=== PATIENT | female | born 1960 | race Caucasian/White ===

== ENCOUNTER → 2017-01-04 | Outpatient (CLI) | payer MEDICARE ==
--- NOTE | 2017-01-06 13:30 | MM ---
Reason for exam: screening (asymptomatic). Last mammogram was performed 1 year ago. History: Patient is postmenopausal. Family history of premenopausal breast cancer in paternal cousin. Benign US left CoreBiopsy of both breasts, September 15, 2007. Cancelled Right Mammotome of the right breast, September 15, 2007. Excisional biopsy of the right breast, 2007. Physical Findings: A clinical breast exam by your physician is recommended on an annual basis and results should be correlated with mammographic findings. MG Screening Mammo w CAD Bilateral CC and MLO view(s) were taken. Prior study comparison: January 05, 2016, bilateral MG screening mammo w CAD. January 03, 2015, bilateral MG screening mammo w CAD. The breast tissue is extremely dense which could obscure a lesion on mammography. Finding: There are stable, fine, diffuse/scattered calcifications in the left breast. There is a chronic nodularity in the right breast. No significant changes in finding since January 05, 2016 and January 03, 2015. ASSESSMENT: Benign, BI-RAD 2 RECOMMENDATION: Routine screening mammogram of both breasts in 1 year.
== END | disposition home or self-care (01) ==
LOC: RADMAMWWP 16:06
PROVIDERS: ATTEND Family Medicine
DX: Z12.31 Encounter for screening mammogram for malignant neoplasm of breast (principal)

== ENCOUNTER → 2018-06-08 | Outpatient (CLI) | payer MEDICARE ==
--- NOTE | 2018-06-08 18:23 | BD ---
EXAMINATION TYPE: Axial Bone Density DATE OF EXAM: 06/08/2018 COMPARISON: NONE CLINICAL HISTORY: 49-year-old female postmenopausal symptoms Height: 5 FT 4 1/2 IN Weight: 103 FRAX RISK QUESTIONS: Glucocorticoids (More than 3mos): YES (Ex: prednisone, prednisolone, methylprednisolone, dexamethasone, and hydrocortisone). Secondary Osteoporosis: Current Tobacco Use: YES RISK FACTORS HISTORY OF: Postmenopausal woman: AGE 45 Lost more than 2 inches in height since high school: YES Poor Health: FAIR MEDICATIONS: Prednisone or other steroids: COPD How Long: ONE YEAR How Long: Additional Medications: OXYCODONE, FLEXERIL, CLONOPIN, EFFEXOR Additional History: EXAM MEASUREMENTS: Bone mineral densitometry was performed using the [employer] System. Bone mineral density as measured about the Lumbar spine is: ----- L1-L4(G/cm2): 1.166 T Score Values are as follows: ----- L2: 0.3 ----- L3: -0.5 ----- L4: -0.2 ----- L1-L4: -0.1 Bone mineral density has: INCREASED 0.3 % since study of: 2014 Bone mineral density about the R hip (g/cm2): 0.985 Bone mineral density about the L hip (g/cm2): 0.978 T Score values are as follows: -----R Neck: -0.4 -----L Neck: -0.4 -----R Total: -1.0 -----L Total: -1.0 Bone mineral density has: INCREASED 1.5 % since study of: 2014 IMPRESSION: Normal (Values between +1 and -1 indicate normal bone mass). However, note that measurements border on osteopenia at both hips. Consider repeating this study in 5 years or sooner if there is some new clinical indication. NOTE: T-SCORE=SD OF THE YOUNG ADULT MEAN.
--- NOTE | 2018-06-09 13:20 | MM ---
Reason for exam: screening (asymptomatic). Last mammogram was performed 1 year and 5 months ago. History: Patient is postmenopausal. Family history of premenopausal breast cancer in paternal cousin. Benign US left CoreBiopsy of both breasts, September 15, 2007. Cancelled Right Mammotome of the right breast, September 15, 2007. Excisional biopsy of the right breast, 2007. Physical Findings: A clinical breast exam by your physician is recommended on an annual basis and results should be correlated with mammographic findings. MG 3D Screening Mammo W/Cad Bilateral CC, MLO, and XCCL view(s) were taken. Prior study comparison: January 04, 2017, bilateral MG screening mammo w CAD. January 05, 2016, bilateral MG screening mammo w CAD. The breast tissue is heterogeneously dense. This may lower the sensitivity of mammography. Stable benign calcifications. There is chronic nodularity bilaterally. There is no dominant lesion. No significant changes when compared with prior studies. ASSESSMENT: Benign, BI-RAD 2 RECOMMENDATION: Routine screening mammogram of both breasts in 1 year.
== END | disposition home or self-care (01) ==
LOC: RADMAMWWP 15:26
PROVIDERS: ATTEND Family Medicine
DX: Z12.31 Encounter for screening mammogram for malignant neoplasm of breast (principal); Z78.0 Asymptomatic menopausal state
CPT/HCPCS: 77063; 77067; 77080

== ENCOUNTER 2018-07-22 18:04 | Observation (INO) | payer MEDICARE ==
[2018-07-22] MEDS ORDERED: IPRATROPIUM-ALBUTEROL 3 ML NEB INHALATION STA (18:29)
[2018-07-22] MEDS ORDERED: methylPREDNISolone SOD SUCCI 125 MG/2 ML VIAL IV STA (18:29)
--- NOTE | 2018-07-22 18:51 | ED ---
General Adult HPI - General Source: patient, RN notes reviewed Mode of arrival: ambulatory Limitations: no limitations <Emile Carolina - Last Filed: 07/22/18 19:55> <Dawn Ruiz - Last Filed: 07/23/18 01:43> - General Chief complaint: Shortness of Breath Stated complaint: low O2, lizz Time Seen by Provider: 07/22/18 18:21 - History of Present Illness Initial comments: This a 57-year-old female presents emergency Department from urgent care chief complaint of shortness of breath. Patient states that she's been short of breath last few days felt that she does have an upper respiratory infection. Patient states yesterday she had an episode where she cannot get air in or out. She states she was given inhaler by a friend which alleviated some of the symptoms. Patient states she has been wheezing and coughing at home. Patient is a daily smoker history of COPD asthma. Patient states that she was seen at [facility] and sent here for further evaluation. She was given one breathing treatment of albuterol which minimally helped. Denies any chest pain. Patient denies any fever, chills, night sweats. Denies any chest pain but states that there is tightness. (Emile Carolina) - Related Data Home Medications Medication Instructions Recorded Confirmed clonazePAM [Clonazepam] 1 mg PO TID 03/03/15 07/22/18 oxyCODONE HCL/ACETAMINOPHEN 1 tab PO QID 03/03/15 07/22/18 [Oxycodone-Acetaminophen 5-325] [id number]-[id number] [id number] 1 - 2 tab PO Q6HR PRN 05/06/15 07/22/18 [Excedrin] Cyclobenzaprine [Flexeril] 10 mg PO TID 07/22/18 07/22/18 Venlafaxine HCl ER [Effexor XR] 75 mg PO DAILY 07/22/18 07/22/18 Allergies Allergy/AdvReac Type Severity Reaction Status Date / Time codeine Allergy Nausea & Verified 07/22/18 18:20 Vomiting gabapentin [From Neurontin] Allergy STUTTERS, Verified 07/22/18 18:20 SPEECH DIFFICULTY. hydrocodone bitartrate Allergy Nausea & Verified 07/22/18 18:20 [From Vicodin] Vomiting tramadol HCl [From Ultram] Allergy Nausea & Verified 07/22/18 18:20 Vomiting Review of Systems ROS Other: All systems not noted in ROS Statement are negative. <Emile Carolina - Last Filed: 07/22/18 19:55> ROS Other: All systems not noted in ROS Statement are negative. <JosephDawn P - Last Filed: 07/23/18 01:43> ROS Statement: Those systems with pertinent positive or pertinent negative responses have been documented in the HPI. Past Medical History Past Medical History: Asthma, COPD, Fibromyalgia, Osteoarthritis (OA), Seizure Disorder Additional Past Medical History / Comment(s): MIGRAINES, last seizure 2009 History of Any Multi-Drug Resistant Organisms: None Reported Past Surgical History: Tubal Ligation Additional Past Surgical History / Comment(s): Ectopic , D&C, PAIN CLINIC PROCEDURES- Past Anesthesia/Blood Transfusion Reactions: Postoperative Nausea & Vomiting ( PONV) Past Psychological History: Anxiety Smoking Status: Current every day smoker Past Alcohol Use History: Rare Past Drug Use History: Marijuana - Past Family History Brother(s) Family Medical History: Cancer Additional Family Medical History / Comment(s): Brother throat CA Mother Family Medical History: Cancer Additional Family Medical History / Comment(s): Uterine CA Father Family Medical History: Cancer Additional Family Medical History / Comment(s): MELANOMA <Emile Carolina - Last Filed: 07/22/18 19:55> General Exam Limitations: no limitations General appearance: alert, in no apparent distress Head exam: Present: atraumatic, normocephalic, normal inspection Eye exam: Present: normal appearance, PERRL, EOMI. Absent: scleral icterus, conjunctival injection, periorbital swelling ENT exam: Present: normal exam, normal oropharynx, mucous membranes moist Neck exam: Present: normal inspection, full ROM. Absent: tenderness, meningismus, lymphadenopathy Respiratory exam: Present: respiratory distress (Minimal), wheezes (Mild diffuse ), other (Pulse ox 93 hypoxia). Absent: normal lung sounds bilaterally, rales, rhonchi, stridor Cardiovascular Exam: Present: regular rate, normal rhythm, normal heart sounds. Absent: systolic murmur, diastolic murmur, rubs, gallop, clicks <Emile Carolina - Last Filed: 07/22/18 19:55> Course <Emile Carolina - Last Filed: 07/22/18 19:55> <Dawn Ruiz - Last Filed: 07/23/18 01:43> Vital Signs 07/22/18 07/22/18 07/22/18 18:15 19:01 19:16 Temperature 98.8 F Pulse Rate 77 74 74 Respiratory 18 Rate Blood Pressure 117/77 O2 Sat by Pulse 93 L Oximetry 07/22/18 07/22/18 19:30 20:00 Temperature Pulse Rate 70 70 Respiratory 22 18 Rate Blood Pressure 120/98 115/62 O2 Sat by Pulse 100 95 Oximetry - Reevaluation(s) Reevaluation #1: 07/22/18 18:50 Vitals were reviewed patient satting 93, hypoxic, placed on O2, (Emile Carolina) EKG Findings - EKG Comments: EKG Findings:: EKG performed at 18:57 normal sinus rhythm with rate of 77 ND 192 QRS 86 QT/QTC 366/414 <Emile Carolina - Last Filed: 07/22/18 19:55> Medical Decision Making - Lab Data Result diagrams: 07/22/18 18:37 07/22/18 18:37 <Emile Carolina - Last Filed: 07/22/18 19:55> - Lab Data Result diagrams: 07/22/18 18:37 07/22/18 18:37 <Dawn Ruiz - Last Filed: 07/23/18 01:43> - Medical Decision Making 57-year-old female presented for dyspnea. Patient had chest x-ray, lab work and EKG which unremarkable though patient continues to be dyspneic. Patient was hypoxic at urgent care improved after multiple breathing treatments. Patient will be admitted at this time for COPD exacerbation (Emile Carolina) I was available for consultation in the emergency department. The history and physical exam were done by the midlevel provider. I was consulted for this patient's care. I reviewed the case with the midlevel provider and based on their presentation of the patient, I agree with the assessment, medical decision making and plan of care as documented. (Dawn Ruiz) - Lab Data Lab Results 07/22/18 07/22/18 07/22/18 Range/Units 18:37 18:37 18:37 WBC 9.6 (3.8-10.6) k/uL RBC 4.47 (3.80-5.40) m/uL Hgb 14.5 (11.4-16.0) gm/dL Hct 44.0 (34.0-46.0) % MCV 98.5 (80.0-100.0) fL MCH 32.4 (25.0-35.0) pg MCHC 32.9 (31.0-37.0) g/dL RDW 12.9 (11.5-15.5) % Plt Count 262 (150-450) k/uL Neutrophils % 62 % Lymphocytes % 29 % Monocytes % 5 % Eosinophils % 2 % Basophils % 0 % Neutrophils # 5.9 (1.3-7.7) k/uL Lymphocytes # 2.8 (1.0-4.8) k/uL Monocytes # 0.4 (0-1.0) k/uL Eosinophils # 0.2 (0-0.7) k/uL Basophils # 0.0 (0-0.2) k/uL PT (9.0-12.0) sec INR (<1.2) APTT (22.0-30.0) sec Sodium 140 (137-145) mmol/L Potassium 4.3 (3.5-5.1) mmol/L Chloride 103 (98-107) mmol/L Carbon Dioxide 28 (22-30) mmol/L Anion Gap 9 mmol/L BUN 17 (7-17) mg/dL Creatinine 0.70 (0.52-1.04) mg/dL Est GFR (CKD-EPI)AfAm >90 (>60 ml/min/1.73 sqM) Est GFR (CKD-EPI)NonAf >90 (>60 ml/min/1.73 sqM) Glucose 88 (74-99) mg/dL Calcium 9.4 (8.4-10.2) mg/dL Magnesium 1.9 (1.6-2.3) mg/dL Total Bilirubin 0.3 (0.2-1.3) mg/dL AST 28 (14-36) U/L ALT 23 (9-52) U/L Alkaline Phosphatase 64 (38-126) U/L Total Creatine Kinase 91 (30-135) U/L CK-MB (CK-2) 0.4 (0.0-2.4) ng/mL CK-MB (CK-2) Rel Index 0.4 Troponin I <0.012 (0.000-0.034) ng/mL NT-Pro-B Natriuret Pep pg/mL Total Protein 7.0 (6.3-8.2) g/dL Albumin 4.2 (3.5-5.0) g/dL 07/22/18 07/22/18 Range/Units 18:37 18:37 WBC (3.8-10.6) k/uL RBC (3.80-5.40) m/uL Hgb (11.4-16.0) gm/dL Hct (34.0-46.0) % MCV (80.0-100.0) fL MCH (25.0-35.0) pg MCHC (31.0-37.0) g/dL RDW (11.5-15.5) % Plt Count (150-450) k/uL Neutrophils % % Lymphocytes % % Monocytes % % Eosinophils % % Basophils % % Neutrophils # (1.3-7.7) k/uL Lymphocytes # (1.0-4.8) k/uL Monocytes # (0-1.0) k/uL Eosinophils # (0-0.7) k/uL Basophils # (0-0.2) k/uL PT 9.4 (9.0-12.0) sec INR 0.9 (<1.2) APTT 22.2 (22.0-30.0) sec Sodium (137-145) mmol/L Potassium (3.5-5.1) mmol/L Chloride (98-107) mmol/L Carbon Dioxide (22-30) mmol/L Anion Gap mmol/L BUN (7-17) mg/dL Creatinine (0.52-1.04) mg/dL Est GFR (CKD-EPI)AfAm (>60 ml/min/1.73 sqM) Est GFR (CKD-EPI)NonAf (>60 ml/min/1.73 sqM) Glucose (74-99) mg/dL Calcium (8.4-10.2) mg/dL Magnesium (1.6-2.3) mg/dL Total Bilirubin (0.2-1.3) mg/dL AST (14-36) U/L ALT (9-52) U/L Alkaline Phosphatase (38-126) U/L Total Creatine Kinase (30-135) U/L CK-MB (CK-2) (0.0-2.4) ng/mL CK-MB (CK-2) Rel Index Troponin I (0.000-0.034) ng/mL NT-Pro-B Natriuret Pep 182 pg/mL Total Protein (6.3-8.2) g/dL Albumin (3.5-5.0) g/dL Disposition Time of Disposition: 19:56 <Emile Carolina - Last Filed: 07/22/18 19:55> <Dawn Ruiz - Last Filed: 07/23/18 01:43> Clinical Impression: COPD with exacerbation Disposition: ADMITTED IP TO THIS HOSP Condition: Fair
[2018-07-22 19:01] LABS: Basophils % (A) 0 %; Eosinophils # (A) 0.2 k/uL (0-0.7); Eosinophils % (A) 2 %; HGB 14.5 gm/dL (11.4-16.0); Lymphocytes # (A) 2.8 k/uL (1.0-4.8); Lymphocytes % (A) 29 %; MCH 32.4 pg (25.0-35.0); MCHC 32.9 g/dL (31.0-37.0); MCV 98.5 fL (80.0-100.0); Mean Platelet Volume 7.1; Monocytes # (A) 0.4 k/uL (0-1.0); Monocytes % (A) 5 %; Neutrophils # (A) 5.9 k/uL (1.3-7.7); Neutrophils % (A) 62 %; Platelet Count 262 k/uL (150-450); RBC 4.47 m/uL (3.80-5.40); RDW 12.9 % (11.5-15.5); WBC 9.6 k/uL (3.8-10.6)
[2018-07-22 19:11] LABS: INR 0.9 (<1.2); Partial Thromboplastin Time 22.2 sec (22.0-30.0); Prothrombin Time 9.4 sec (9.0-12.0)
[2018-07-22 19:18] LABS: ALT 23 U/L (9-52); AST 28 U/L (14-36); Albumin 4.2 g/dL (3.5-5.0); Alkaline Phosphatase 64 U/L (38-126); Anion Gap 9 mmol/L; Blood Urea Nitrogen 17 mg/dL (7-17); Calcium 9.4 mg/dL (8.4-10.2); Carbon Dioxide 28 mmol/L (22-30); Chloride 103 mmol/L (98-107); Glucose 88 mg/dL (74-99); Magnesium 1.9 mg/dL (1.6-2.3); Potassium 4.3 mmol/L (3.5-5.1); Sodium 140 mmol/L (137-145); Total Bilirubin 0.3 mg/dL (0.2-1.3)
[2018-07-22 19:21] LABS: Creatine Kinase 91 U/L (30-135)
--- NOTE | 2018-07-22 19:25 | XR ---
EXAMINATION TYPE: XR chest 2V DATE OF EXAM: 07/22/2018 COMPARISON: NONE HISTORY: History of asthma and COPD, dyspnea TECHNIQUE: Frontal and lateral views of the chest are obtained. FINDINGS: Lungs are hyperinflated and hyperlucent with flattening of the diaphragms. There is no foc al air space opacity, pleural effusion, or pneumothorax seen. The cardiac silhouette size is within normal limits. The osseous structures are intact. IMPRESSION: 1. No acute cardiopulmonary process. 2. Emphysematous changes.
[2018-07-22] MEDS ORDERED: LORazepam 2 MG/ML INJ IV STA (19:32)
[2018-07-22 19:35] LABS: Creatine Kinase MB 0.4 ng/mL (0.0-2.4); Troponin I <0.012 ng/mL (0.000-0.034)
[2018-07-22] MEDS ORDERED: ALBUTEROL NEBULIZED 2.5 MG/3 ML INHALATION PRN (19:57)
[2018-07-22 21:30] VITALS: BMI 16.9
[2018-07-22] MEDS ORDERED: PANTOPRAZOLE 40 MG/10 ML VIAL IVP ONE (22:36)
[2018-07-22] MEDS: clonazePAM 0.5 MG TAB PO SCH (23:09)
[2018-07-22] MEDS: CYCLOBENZAPRINE 10 MG TAB PO SCH (23:09)
[2018-07-22] MEDS: methylPREDNISolone SOD SUCCI 125 MG/2 ML VIAL IV SCH (23:12)
[2018-07-22] MEDS: HEPARIN SODIUM,PORCINE 5,000 UNIT/ML 1 ML VIAL SQ SCH (23:14)
[2018-07-23] MEDS: methylPREDNISolone SOD SUCCI 125 MG/2 ML VIAL IV SCH ×2 (06:17→11:48)
[2018-07-23] MEDS: clonazePAM 0.5 MG TAB PO SCH (08:11)
[2018-07-23] MEDS: HEPARIN SODIUM,PORCINE 5,000 UNIT/ML 1 ML VIAL SQ SCH (08:12)
[2018-07-23] MEDS: CYCLOBENZAPRINE 10 MG TAB PO SCH (08:14)
[2018-07-23] MEDS: IPRATROPIUM-ALBUTEROL 3 ML NEB INHALATION SCH ×3 (08:31→15:08)
[2018-07-23] MEDS ORDERED: NICOTINE 21MG/24HR PATCH TRANSDERM SCH (09:00)
[2018-07-23] MEDS ORDERED: PANTOPRAZOLE 40 MG/10 ML VIAL IVP SCH (09:00)
[2018-07-23] MEDS ORDERED: VENLAFAXINE HCL ER 150 MG CAP PO SCH (10:30)
[2018-07-23 12:38] VITALS: BP 108/66; RESP 18; TEMP 98.6
[2018-07-23] MEDS: oxyCODONE-APAP 5-325MG 1 EACH TAB PO PRN ×2 (13:12→13:15)
--- NOTE | 2018-07-23 14:21 | P.HPIM ---
History of Present Illness This is a pleasant 57 years old female with past medical history of asthma/COPD , fibromyalgia, history of arthritis, seizure disorder. She is a patient of Dr. Benjamin. She presents because of dyspnea associated with dry cough of one to two days duration, but no chest pain. Patient is a current smoker about one pack per day since age 10. Patient denies any change in urine or bowel habits. No fever. Heart rate controlled. Blood pressure is stable at 108/66. And she is saturating 96% on room air. CBC, BMP and LFTs were unremarkable. Chest x-ray shows emphysematous changes without acute cardiopulmonary changes as per report. EKG showing normal sinus rhythm at 77 BPM, QTC 414, no significant ST- T changes. On admission patient received a breathing treatment, started on Solu -Medrol and 1 time dose of Ativan as well as Protonix. Patient showed interval improvement and she said she feels better. When I came to see the patient she was sitting in bed, comfortable nontender distress. She was not tachypnea she was breathing at a rate of 16 breath per minute. No use of accessory muscles no difficulty talking. No cough was noticed. Saturation as above within yamilet On room air. And patient feels she can be discharged home and follow-up as an outpatient. Prescription is provided for the patient for her steroids and antibiotics. As well as nicotine patch. Patient is counseled extensively about quitting smoking and she said she will try. Patient has history of depression, and she is follow-up with Dr. Benjamin who recently stopped her Effexor. Patient she has been struggling to find a psychiatrist for a year. However she was smiling at 1 month talking. She denies epistaxis and hopelessness and she denies suicidal and homicidal ideation. Patient was instructed to follow up with her PCP this coming wee to adress all her health and she agrees Patient states she has history of seizure but she was never been on seizure medication, and she's been taking Klonopin for anxiety and other morbid issues and that her doctor is planning to take her orbit in the near future as per patient Review of Systems CONSTITUTIONAL: No fever, no malaise, no fatigue. HEENT: No recent visual problems or hearing problems. Denied any sore throat. CARDIOVASCULAR: No orthopnea, PND, no palpitations, no syncope. PULMONARY: No shortness of breath, no cough, no hemoptysis. GASTROINTESTINAL: No diarrhea, no nausea, no vomiting, no abdominal pain. Normoactive bowel sounds. NEUROLOGICAL: No headaches, no weakness, no numbness. HEMATOLOGICAL: Denies any bleeding or petechiae. GENITOURINARY: Denies any burning micturition, frequency, or urgency. MUSCULOSKELETAL/RHEUMATOLOGICAL: Denies any joint pain, swelling, or any muscle pain. ENDOCRINE: Denies any polyuria or polydipsia. Past Medical History Past Medical History: Asthma, COPD, Fibromyalgia, Osteoarthritis (OA), Seizure Disorder Additional Past Medical History / Comment(s): MIGRAINES, last seizure 2008. DDD History of Any Multi-Drug Resistant Organisms: None Reported Past Surgical History: Tubal Ligation Additional Past Surgical History / Comment(s): Ectopic , D&C, PAIN CLINIC PROCEDURES- Past Anesthesia/Blood Transfusion Reactions: Postoperative Nausea & Vomiting ( PONV) Past Psychological History: Anxiety, Depression Smoking Status: Current every day smoker Past Alcohol Use History: Rare Additional Past Alcohol Use History / Comment(s): SMOKES CIGARETTES 1PPD - STARTED SMOKING AT 10 YRS OLD(1970) Past Drug Use History: Marijuana Additional Drug Use History / Comment(s): Medical Marijuana -STATES MARIJUANA DAILY - Past Family History Brother(s) Family Medical History: Cancer Additional Family Medical History / Comment(s): Brother throat CA Mother Family Medical History: Cancer Additional Family Medical History / Comment(s): Uterine CA Father Family Medical History: Cancer Additional Family Medical History / Comment(s): MELANOMA Medications and Allergies Home Medications Medication Instructions Recorded Confirmed Type oxyCODONE HCL/ACETAMINOPHEN 1 tab PO QID 03/03/15 07/23/18 History [Oxycodone-Acetaminophen 5-325] Xplssai-Raol-Frgb [id number] 1 - 2 tab PO Q6HR PRN 05/06/15 07/23/18 History [Excedrin] Cyclobenzaprine [Flexeril] 10 mg PO TID 07/22/18 07/23/18 History Venlafaxine HCl [Effexor XR] 150 mg PO DAILY 07/23/18 07/23/18 History clonazePAM [KlonoPIN] 1 mg PO TID 07/23/18 07/23/18 History Allergies Allergy/AdvReac Type Severity Reaction Status Date / Time codeine Allergy Nausea & Verified 07/23/18 08:23 Vomiting gabapentin [From Neurontin] Allergy STUTTERS, Verified 07/23/18 08:23 SPEECH DIFFICULTY. hydrocodone bitartrate Allergy Nausea & Verified 07/23/18 08:23 [From Vicodin] Vomiting tramadol HCl [From Ultram] Allergy Nausea & Verified 07/23/18 08:23 Vomiting Physical Exam Vitals: Vital Signs Temp Pulse Pulse Pulse Resp BP BP 07/23/18 12:35 98.6 F 96 18 108/66 07/23/18 12:25 77 07/23/18 12:13 76 07/23/18 08:42 74 07/23/18 08:32 72 07/23/18 08:00 98.0 F 79 16 119/61 07/22/18 23:17 98.4 F 76 19 97/65 07/22/18 21:01 98.2 F 90 20 99/64 07/22/18 20:00 70 18 115/62 07/22/18 19:30 70 22 120/98 07/22/18 19:16 74 07/22/18 19:01 74 07/22/18 18:15 98.8 F 77 18 117/77 Pulse Ox 07/23/18 12:35 96 07/23/18 12:25 07/23/18 12:13 07/23/18 08:42 07/23/18 08:32 07/23/18 08:00 95 07/22/18 23:17 95 07/22/18 21:01 96 07/22/18 20:00 95 07/22/18 19:30 100 07/22/18 19:16 07/22/18 19:01 07/22/18 18:15 93 L Intake and Output 07/22/18 07/23/18 07/23/18 22:59 06:59 14:59 Intake Total 500 375 Balance 500 375 Intake: Oral 500 375 Other: Voiding Method Toilet Toilet # Voids 3 Weight 47.7 kg GENERAL: The patient is alert and oriented x3, not in any acute distress. Well developed, well nourished. HEENT: Pupils are round and equally reacting to light. EOMI. No scleral icterus. No conjunctival pallor. Normocephalic, atraumatic. No pharyngeal erythema. No thyromegaly. CARDIOVASCULAR: S1 and S2 present. No murmurs, rubs, or gallops. PULMONARY: Chest is clear to auscultation, no crackles. Bilateral scattered wheezing and prolonged expiration. ABDOMEN: Soft, nontender, nondistended, normoactive bowel sounds. No palpable organomegaly. MUSCULOSKELETAL: No joint swelling or deformity. EXTREMITIES: No cyanosis, clubbing, or pedal edema. NEUROLOGICAL: Gross neurological examination did not reveal any focal deficits. SKIN: No rashes. Results CBC & Chem 7: 07/22/18 18:37 07/22/18 18:37 Thrombosis Risk Factor Assmnt - Choose All That Apply Each Factor Represents 1 point: Abnormal pulmonary function (COPD), Age 41-60 years Thrombosis Risk Factor Assessment Total Risk Factor Score: 2 Thrombosis Risk Factor Assessment Level: Low Risk Assessment and Plan Assessment: Acute COPD exacerbation History of fibromyalgia history of arthritis History of seizure disorder Plan: This is a pleasant 57 years old female who presents with COPD exacerbation. Continue with steroids, oxygen and breathing treatment. Labs and medication were reviewed.. However patient breathing is so quiet, she doesn't complain of from dyspnea and coughing well he was seen her and she was not using accessory muscles she was talking comfortably and easily. No other concerning symptoms. a stable as above and as well as labs. He is herself feels better. Bedside echo the patient can go home and follow-up as an outpatient. Problems and management plan was discussed with the patient and she verbalized understanding and acceptance. bedside Patient is found stable and can be discharged home however she needs follow-up as outpatient. She'll probably she will call and make an appointment with her PCP this coming week. Prescription for tip of steroids, and doxycycline and nicotine patches provided for the patient. She did not want any more Scripts within her home meds
[2018-07-23] MEDS ORDERED: DOXYCYCLINE 100 MG CAP PO STA (14:36)
[2018-07-23 15:23] VITALS: PULSE 79
--- NOTE | 2018-07-26 09:25 | P.DS ---
Providers Date of admission: 07/22/18 19:57 Attending physician: Óscar Martin Primary care physician: Michael Benjamin Please refer to my H&P from today, same day note Hospital Course: please refer to my H&P for more details pt returned to her baseline breathing. she was smiling and showing has future plan and showed interest with follow up with her physician as outpt , pt is been discharged with tapered dose of steroid and antibiotic. Pt was instructed about the problems and management plan and Pt verbalized understanding and acceptance Pt is found stable and can be discharged to the community but needs follow up as outpt Patient Condition at Discharge: Fair Plan - Discharge Summary Discharge Rx Participant: No New Discharge Prescriptions: New RX: Nicotine 21Mg/24Hr Patch [Habitrol] 1 patch TRANSDERM DAILY #30 patch RX: predniSONE 10 mg PO DIRECTED #13 tab RX: Doxycycline [Vibramycin] 100 mg PO BID 3 Days #6 capsule Continue RX: oxyCODONE HCL/ACETAMINOPHEN [Oxycodone-Acetaminophen 5-325] 1 tab PO QID RX: Eoacvni-Hkpu-Xypm [id number] [Excedrin] 1 - 2 tab PO Q6HR PRN PRN Reason: Migraine Headache RX: Cyclobenzaprine [Flexeril] 10 mg PO TID RX: clonazePAM [KlonoPIN] 1 mg PO TID RX: Venlafaxine HCl [Effexor XR] 150 mg PO DAILY Discharge Medication List RX: oxyCODONE HCL/ACETAMINOPHEN [Oxycodone-Acetaminophen 5-325] 1 tab PO QID [History] RX: [id number]-Jfnm-Klrz [id number] [Excedrin] 1 - 2 tab PO Q6HR PRN 05/06/15 [ History] RX: Cyclobenzaprine [Flexeril] 10 mg PO TID 07/22/18 [History] RX: Doxycycline [Vibramycin] 100 mg PO BID 3 Days #6 capsule 07/23/18 [Rx] RX: Nicotine 21Mg/24Hr Patch [Habitrol] 1 patch TRANSDERM DAILY #30 patch [Rx] RX: Venlafaxine HCl [Effexor XR] 150 mg PO DAILY 07/23/18 [History] RX: clonazePAM [KlonoPIN] 1 mg PO TID 07/23/18 [History] RX: predniSONE 10 mg PO DIRECTED #13 tab 07/23/18 [Rx] Follow up Appointment(s)/Referral(s): Michael Benjamin MD [Primary Care Provider] - 1-2 days Patient Instructions/Handouts: COPD (Chronic Obstructive Pulmonary Disease) (DC ), Chronic Lung Disease and Infection Prevention (DC), Nutrition Guidelines for People with COPD (DC) Activity/Diet/Wound Care/Special Instructions: Cardiac diet Activity is limited til you see your doctor. Call Dr Benjamin on Tuesday to make a follow up appointment for this week. Stop smoking program encouraged. Good handwashing. Discharge Disposition: HOME SELF-CARE
== END 2018-07-23 15:25 | disposition home or self-care (01) ==
LOC: EC 18:04 → 6PED 19:57
PROVIDERS: ADMIT Family Medicine; ATTEND Family Medicine
DX: J44.1 Chronic obstructive pulmonary disease with (acute) exacerbation (principal); M79.7 Fibromyalgia; M19.90 Unspecified osteoarthritis, unspecified site; G43.909 Migraine, unspecified, not intractable, without status migrainosus; G40.909 Epilepsy, unspecified, not intractable, without status epilepticus; F17.210 Nicotine dependence, cigarettes, uncomplicated; F41.9 Anxiety disorder, unspecified; F32.9 Major depressive disorder, single episode, unspecified; Z80.8 Family history of malignant neoplasm of other organs or systems; Z80.49 Family history of malignant neoplasm of other genital organs; Z79.899 Other long term (current) drug therapy; Z79.891 Long term (current) use of opiate analgesic; Z88.5 Allergy status to narcotic agent; Z88.8 Allergy status to other drugs, medicaments and biological substances; R09.02 Hypoxemia
CPT/HCPCS: 99285; 96372 ×2; 96375 ×2; 96376 ×2; 96374; 36415; 94640 ×3; 93005; 83880; 80053; 82550; 82553; 83735; 84484; 85025; 85610; 85730; 71046; G0378 ×2; S4990; J2060; J1644 ×2; J2930 ×2; C9113 ×2

== ENCOUNTER → 2019-01-15 | Outpatient (CLI) | payer MEDICARE ==
[2019-01-15 17:17] LABS: Vitamin D 25 Hydroxy 46.8 ng/mL (30.0-100.0)
== END | disposition home or self-care (01) ==
LOC: LABWHC1 10:34
PROVIDERS: ATTEND Psychiatry & Neurology Neurology
DX: R41.3 Other amnesia (principal)
CPT/HCPCS: 36415; 82306; 82550; 82607; 85652; 86038

== ENCOUNTER → 2019-03-01 | Outpatient (CLI) | payer MEDICARE ==
--- NOTE | 2019-03-01 13:43 | CT ---
EXAMINATION TYPE: CT brain wo con DATE OF EXAM: 03/01/2019 COMPARISON: 12/19/2011 HISTORY: Memory loss CT DLP: 823.3 mGycm Automated exposure control for dose reduction was used. FINDINGS: There is mild generalized degenerative change with a slightly greater frontal lobe component which is similar to the prior exam. Areas of low-attenuation the white matter are nonspecific but most typica l remote microvascular ischemia. No evidence of acute hemorrhage. No mass effect. Calvarium intact. Nasal septal deviation noted. IMPRESSION: STABLE MILD GENERALIZED DEGENERATIVE CHANGE WITH A GREATER FRONTAL LOBE COMPONENT. THERE MAY BE VERY MILD LOW-ATTENUATION IN THE WHITE MATTER MOST COMMONLY ASSOCIATED WITH REMOTE MICROVASCULAR ISCHEMIA.
== END | disposition home or self-care (01) ==
LOC: RADCTMAIN 13:04
PROVIDERS: ATTEND Psychiatry & Neurology Neurology
DX: G31.9 Degenerative disease of nervous system, unspecified (principal)
CPT/HCPCS: 70450

== ENCOUNTER → 2019-11-19 | Outpatient (CLI) | payer MEDICARE | END | disposition home or self-care (01) | LOC: RADMAMWWP 15:09 | PROVIDERS: ATTEND Family Medicine | DX: Z12.31 Encounter for screening mammogram for malignant neoplasm of breast (principal) | CPT/HCPCS: 77067 ==

== ENCOUNTER → 2019-11-27 | Outpatient (CLI) | payer MEDICARE ==
--- NOTE | 2019-11-28 08:26 | MM ---
Reason for exam: additional evaluation requested from abnormal screening. Last mammogram was performed less than 1 month ago. History: Patient is postmenopausal. Family history of premenopausal breast cancer in paternal cousin. Benign US left CoreBiopsy of both breasts, September 15, 2007. Cancelled Right Mammotome of the right breast, September 15, 2007. Excisional biopsy of the right breast, 2007. Physical Findings: Nurse did not find any significant physical abnormalities on exam. MG 3D Work Up W/Cad LT Spot compression CC, spot compression MLO, and ML view(s) were taken of the left breast. Prior study comparison: November 19, 2019, bilateral MG screening mammo w CAD. June 08, 2018, bilateral MG 3d screening mammo w/cad. The breast tissue is heterogeneously dense. This may lower the sensitivity of mammography. 7mm round medial subareolar asymmetry persists on spot CC but not on MLO or spot MLO. This appears stable back to 2017 and as dense tissue on ultrasound. These results were verbally communicated with the patient and result sheet given to the patient on 11/27/19. ASSESSMENT: Benign, BI-RAD 2 RECOMMENDATION: Return to routine screening mammogram schedule for both breasts.
--- NOTE | 2019-11-28 08:27 | USB ---
Reason for exam: additional evaluation requested from abnormal screening. History: Patient is postmenopausal. Family history of premenopausal breast cancer in paternal cousin. Benign US left CoreBiopsy of both breasts, September 15, 2007. Cancelled Right Mammotome of the right breast, September 15, 2007. Excisional biopsy of the right breast, 2007. US Breast Workup Limited LT Left limited breast ultrasound including focal area of concern, retroareolar and axilla demonstrates no cystic or solid lesion seen. These results were verbally communicated with the patient and result sheet given to the patient on 11/27/19. ASSESSMENT: Negative, BI-RAD 1 RECOMMENDATION: Return to routine screening mammogram schedule for both breasts.
== END | disposition home or self-care (01) ==
LOC: RADMAMWWP 15:13
PROVIDERS: ATTEND Family Medicine
DX: R92.8 Other abnormal and inconclusive findings on diagnostic imaging of breast (principal)
CPT/HCPCS: 77065; 76642; G0279; 77061

== ENCOUNTER 2020-07-18 13:30 | Inpatient (IN) | payer MEDICARE ==
[2020-07-18] MEDS ORDERED: LORazepam 2 MG/ML INJ IM STA (14:07)
[2020-07-18] MEDS ORDERED: diphenhydrAMINE 50 MG/ML 1 ML VIAL IM STA (14:07)
--- NOTE | 2020-07-18 14:23 | ED ---
Psych HPI - General Chief Complaint: Psychiatric Symptoms Stated Complaint: Mental Health Time Seen by Provider: 07/18/20 13:51 Source: patient, EMS, RN notes reviewed, old records reviewed Mode of arrival: EMS - History of Present Illness Initial Comments: this is a 5-year-old female DF for evaluation patient refuses to participating history taking secondary to agitation and being in the hospital, EMS and PD were called on patient the house to bring the ER patient is brought in under petition for psychiatric evaluation MD Complaint: suicidal ideation, feels depressed, other (anger) -: unknown Associated Psychiatric Symptoms: depression, suicidal ideation Quality: constant Improves With: none Worsens With: none Context: significant life stressor Associated Symptoms: denies other symptoms Treatments Prior to Arrival: placed on mental health hold If Self Harm: admits thoughts of self harm - Related Data Home Medications Medication Instructions Recorded Confirmed clonazePAM [KlonoPIN] 1 mg PO TID 07/23/18 07/18/20 Melatonin 10 mg PO HS 07/18/20 07/18/20 Mirtazapine 15 mg PO HS 07/18/20 07/18/20 Sertraline [Zoloft] 50 mg PO DAILY 07/18/20 07/18/20 methocarbamoL [Robaxin] 500 mg PO TID PRN 07/18/20 07/18/20 oxyCODONE-APAP 10-325MG [Percocet 1 tab PO TID PRN 07/18/20 07/18/20 10-325 mg] Allergies Allergy/AdvReac Type Severity Reaction Status Date / Time codeine Allergy Nausea & Verified 07/18/20 18:00 Vomiting gabapentin [From Neurontin] Allergy STUTTERS, Verified 07/18/20 18:00 SPEECH DIFFICULTY. hydrocodone bitartrate Allergy Nausea & Verified 07/18/20 18:00 [From Vicodin] Vomiting tramadol HCl [From Ultram] Allergy Nausea & Verified 07/18/20 18:00 Vomiting Review of Systems ROS Statement: Those systems with pertinent positive or pertinent negative responses have been documented in the HPI. ROS Other: All systems not noted in ROS Statement are negative. Past Medical History Past Medical History: Asthma, COPD, Fibromyalgia, Osteoarthritis (OA), Seizure Disorder Additional Past Medical History / Comment(s): MIGRAINES, last seizure 2008. DDD History of Any Multi-Drug Resistant Organisms: None Reported Past Surgical History: Tubal Ligation Additional Past Surgical History / Comment(s): Ectopic , D&C, PAIN CLINIC PROCEDURES- Past Anesthesia/Blood Transfusion Reactions: Postoperative Nausea & Vomiting (PONV) Past Psychological History: Anxiety, Depression Past Alcohol Use History: Rare Past Drug Use History: Marijuana - Past Family History Brother(s) Family Medical History: Cancer Additional Family Medical History / Comment(s): Brother throat CA Mother Family Medical History: Cancer Additional Family Medical History / Comment(s): Uterine CA Father Family Medical History: Cancer Additional Family Medical History / Comment(s): MELANOMA General Exam Limitations: no limitations General appearance: alert, in no apparent distress Head exam: Present: atraumatic, normocephalic, normal inspection Eye exam: Present: normal appearance, PERRL, EOMI. Absent: scleral icterus, conjunctival injection, periorbital swelling ENT exam: Present: normal exam, mucous membranes moist Neck exam: Present: normal inspection. Absent: tenderness, meningismus, lymphadenopathy Respiratory exam: Present: normal lung sounds bilaterally. Absent: respiratory distress, wheezes, rales, rhonchi, stridor Cardiovascular Exam: Present: regular rate, normal rhythm, normal heart sounds. Absent: systolic murmur, diastolic murmur, rubs, gallop, clicks GI/Abdominal exam: Present: soft, normal bowel sounds. Absent: distended, tenderness, guarding, rebound, rigid Extremities exam: Present: normal inspection, full ROM, normal capillary refill. Absent: tenderness, pedal edema, joint swelling, calf tenderness Back exam: Present: normal inspection Neurological exam: Present: alert, oriented X3, CN II-XII intact Psychiatric exam: Present: normal affect, normal mood Skin exam: Present: warm, dry, intact, normal color. Absent: rash Course Vital Signs 07/18/20 07/18/20 13:51 14:52 Temperature 99.5 F Pulse Rate 98 Respiratory 20 Rate Blood Pressure 136/80 O2 Sat by Pulse 99 Oximetry - Reevaluation(s) Reevaluation #1: 07/18/20 16:16 medical record is reviewed Reevaluation #2: 07/18/20 16:16 medical clear for psychiatric evaluation Reevaluation #3: 07/18/20 18:57 patient seen in however psychiatry here in the ER Medical Decision Making - Medical Decision Making 59 female seen and evaluated psychiatry [place] for psychiatric evaluation and treatment to psychiatric unit Disposition Clinical Impression: Depression, Acute anxiety, Suicidal ideation Disposition: TRANSFER TO PSYCH HOSP/UNIT Condition: Fair Is patient prescribed a controlled substance at d/c from ED?: No Referrals: Ousmane Lock Jr, [Primary Care Provider] - 1-2 days
[2020-07-18] MEDS ORDERED: LORazepam 1 MG TAB PO STA (19:59)
[2020-07-18] MEDS ORDERED: oxyCODONE-APAP 10-325MG 1 EACH TAB PO STA (20:31)
[2020-07-18] MEDS ORDERED: ACETAMINOPHEN TAB 325 MG TAB PO PRN (21:34)
[2020-07-18] MEDS ORDERED: MAGNESIUM HYDROXIDE 2,400 MG/10 ML CUP PO PRN (21:34)
[2020-07-18] MEDS ORDERED: ZIPRASIDONE 20 MG VIAL IM PRN (21:34)
[2020-07-18] MEDS ORDERED: MAG HYDROX/AL HYDROX/SIMETH 30 ML CUP PO PRN (21:34)
[2020-07-18] MEDS ORDERED: clonazePAM 1 MG TAB PO PRN (21:40)
[2020-07-18] MEDS ORDERED: oxyCODONE-APAP 5-325MG 1 EACH TAB PO PRN (21:44)
[2020-07-18] MEDS ORDERED: MIRTAZAPINE 15 MG TAB PO SCH (22:00)
[2020-07-18] MEDS: MELATONIN 5 MG TABLET PO SCH (22:47)
[2020-07-19] MEDS: NICOTINE 21MG/24HR PATCH TRANSDERM SCH (08:40)
[2020-07-19] MEDS ORDERED: SERTRALINE 50 MG TAB PO SCH (09:00)
[2020-07-19 09:20] LABS: Basophils # (A) 0.1 k/uL (0-0.2); Basophils % (A) 1 %; Eosinophils # (A) 0.2 k/uL (0-0.7); Eosinophils % (A) 2 %; HCT 47.4 % (34.0-46.0); HGB 15.7 gm/dL (11.4-16.0); Lymphocytes # (A) 4.4 k/uL (1.0-4.8); Lymphocytes % (A) 40 %; MCH 33.6 pg (25.0-35.0); MCHC 33.2 g/dL (31.0-37.0); MCV 101.3 fL (80.0-100.0); Mean Platelet Volume 7.8; Monocytes # (A) 0.5 k/uL (0-1.0); Monocytes % (A) 5 %; Neutrophils # (A) 5.5 k/uL (1.3-7.7); Neutrophils % (A) 50 %; Platelet Count 270 k/uL (150-450); RBC 4.67 m/uL (3.80-5.40); RDW 12.6 % (11.5-15.5); WBC 10.9 k/uL (3.8-10.6)
[2020-07-19 09:56] LABS: ALT 14 U/L (4-34); AST 41 U/L (14-36); African American GFR (CKD) >90 (>60 ml/min/1.73 sqM); Alkaline Phosphatase 62 U/L (38-126); Anion Gap 10 mmol/L; Blood Urea Nitrogen 21 mg/dL (7-17); Calcium 9.4 mg/dL (8.4-10.2); Carbon Dioxide 23 mmol/L (22-30); Chloride 105 mmol/L (98-107); Cholesterol 234 mg/dL (<200); Glucose 152 mg/dL (74-99); HDL Cholesterol 59 mg/dL (40-60); LDL Cholesterol,Calculated 149 mg/dL (0-99); Non-African American GFR(CKD) 84 (>60 ml/min/1.73 sqM); Potassium 4.5 mmol/L (3.5-5.1); Sodium 138 mmol/L (137-145); Total Bilirubin 0.8 mg/dL (0.2-1.3); Total Protein 7.8 g/dL (6.3-8.2); Triglycerides 132 mg/dL (<150)
[2020-07-19] MEDS: methocarbamoL 500 MG TAB PO PRN (10:28)
[2020-07-19 13:34] VITALS: BMI 15.7
[2020-07-19] MEDS: OLANZapine 5 MG TAB PO SCH ×2 (15:01→20:59)
[2020-07-19] MEDS: IBUPROFEN 600 MG TAB PO SCH ×2 (16:04→22:00)
[2020-07-19 16:07] LABS: Hemoglobin A1C 5.6 % (4.0-6.0)
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
[2020-07-19] MEDS ORDERED: IBUPROFEN 600 MG TAB PO ONE (19:00)
[2020-07-19] MEDS: MELATONIN 5 MG TABLET PO SCH (20:58)
[2020-07-19] MEDS: clonazePAM 1 MG TAB PO SCH (20:59)
[2020-07-19] MEDS: oxyCODONE-APAP 5-325MG 1 EACH TAB PO SCH (21:00)
[2020-07-19] MEDS ORDERED: traZODone HCL 50 MG TAB PO SCH (21:00)
[2020-07-20] MEDS: methocarbamoL 500 MG TAB PO PRN ×2 (02:51→09:28)
[2020-07-20] MEDS: IBUPROFEN 600 MG TAB PO SCH ×3 (09:22→22:11)
[2020-07-20] MEDS: clonazePAM 1 MG TAB PO SCH ×2 (09:23→22:09)
[2020-07-20] MEDS: OLANZapine 5 MG TAB PO SCH ×3 (09:23→22:10)
[2020-07-20] MEDS: oxyCODONE-APAP 5-325MG 1 EACH TAB PO SCH ×2 (09:24→20:00)
[2020-07-20] MEDS: NICOTINE 21MG/24HR PATCH TRANSDERM SCH (10:23)
--- NOTE | 2020-07-20 11:46 | P.HPIM ---
History of Present Illness H&P Date: 07/20/20 Chief Complaint: Depression suicidal ideations 59 year-old patient known to my practice who presented to the emergency room desponded suggesting that she had sought regarding this suicide, has been depressed, complains of multiple somatic dysfunction Review of Systems Constitutional: Reports as per HPI Ears, nose, mouth and throat: Reports as per HPI Cardiovascular: Reports as per HPI Respiratory: Reports as per HPI Gastrointestinal: Reports as per HPI Genitourinary: Reports as per HPI Menstruation: Reports as per HPI Musculoskeletal: Reports as per HPI Integumentary: Reports as per HPI Neurological: Reports as per HPI Psychiatric: Reports as per HPI, Reports anhedonia, Reports anxiety, Reports depression, Reports difficulty concentrating, Reports hopelessness, Reports suicidal ideation Endocrine: Reports as per HPI Hematologic/Lymphatic: Reports as per HPI Past Medical History Past Medical History: Asthma, COPD, Fibromyalgia, Osteoarthritis (OA), Seizure Disorder Additional Past Medical History / Comment(s): MIGRAINES, last seizure 2008. DDD History of Any Multi-Drug Resistant Organisms: None Reported Past Surgical History: Tubal Ligation Additional Past Surgical History / Comment(s): Ectopic , D&C, PAIN CLINIC PROCEDURES- Past Anesthesia/Blood Transfusion Reactions: Postoperative Nausea & Vomiting (PONV) Past Psychological History: Anxiety, Depression Past Alcohol Use History: Rare Past Drug Use History: Marijuana - Past Family History Brother(s) Family Medical History: Cancer Additional Family Medical History / Comment(s): Brother throat CA Mother Family Medical History: Cancer Additional Family Medical History / Comment(s): Uterine CA Father Family Medical History: Cancer Additional Family Medical History / Comment(s): MELANOMA Medications and Allergies Home Medications Medication Instructions Recorded Confirmed Type clonazePAM [KlonoPIN] 1 mg PO TID 07/23/18 07/18/20 History Melatonin 10 mg PO HS 07/18/20 07/18/20 History Mirtazapine 15 mg PO HS 07/18/20 07/18/20 History Sertraline [Zoloft] 50 mg PO DAILY 07/18/20 07/18/20 History methocarbamoL [Robaxin] 500 mg PO TID PRN 07/18/20 07/18/20 History oxyCODONE-APAP 10-325MG [Percocet 1 tab PO TID PRN 07/18/20 07/18/20 History 10-325 mg] Allergies Allergy/AdvReac Type Severity Reaction Status Date / Time codeine Allergy Nausea & Verified 07/18/20 18:00 Vomiting gabapentin [From Neurontin] Allergy STUTTERS, Verified 07/18/20 18:00 SPEECH DIFFICULTY. hydrocodone bitartrate Allergy Nausea & Verified 07/18/20 18:00 [From Vicodin] Vomiting tramadol HCl [From Ultram] Allergy Nausea & Verified 07/18/20 18:00 Vomiting Physical Exam Osteopathic Statement: *. No significant issues noted on an osteopathic structural exam other than those noted in the History and Physical/Consult. Vitals: Vital Signs Temp Pulse Resp BP 07/20/20 03:00 98 F 90 16 111/67 07/19/20 17:56 97.8 F 07/19/20 13:28 97.9 F General: [Patient awake, alert and oriented times 3. Patient in no acute distress.] HEENT: [PERRL. EOMI. No pharyngeal erythema or exudate.] Neck: [No adenopathy.] Cardiac: [Heart regular in rate and rhythm. No S3. No S4. No clicks, rubs. No murmur.] Lungs: [Clear to auscultation bilaterally.] Abdomen: [No mass. No organomegaly. Bowel sounds presnt and normoactive in all 4 quadrants.] Extremes: [No edema no cyanosis no claudication normal pulses] : Normal female genitalia Musculoskeletal: [No joint erythema, edema or tenderness.] Skin: [No rash.] Neurologic: [No lateralizing deficits. CN II - XII grossly intact.] Lymphatic: [No adenopathy.] Results CBC & Chem 7: 07/19/20 08:42 07/19/20 08:42 Thrombosis Risk Factor Assmnt - DVT/VTE Prophylaxis DVT/VTE Prophylaxis: Low risk, early ambulation encouraged Assessment and Plan (1) Acute anxiety Current Visit: Yes Status: Acute Code(s): F41.9 - ANXIETY DISORDER, UNSPECIFIED SNOMED Code(s): 40057620 (2) Depression Current Visit: Yes Status: Acute Code(s): F32.9 - MAJOR DEPRESSIVE DISORDER, SINGLE EPISODE, UNSPECIFIED SNOMED Code(s): 91520348 (3) Suicidal ideation Current Visit: Yes Status: Acute Code(s): R45.851 - SUICIDAL IDEATIONS SNOMED Code(s): 2735151 Plan: Depression, anxiety Multiple somatic dysfunction and complaints Persistent low back pain by history We'll also obtain UA unable to find urinalysis in the ER visit We'll recommend current meds as scheduled This patient is medically cleared for evaluation and treatment in the mental health unit We will reevaluate on an as-needed basis Time with Patient: Greater than 30
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
[2020-07-20] MEDS ORDERED: OLANZapine 5 MG TAB PO ONE (17:45)
[2020-07-20] MEDS: MELATONIN 5 MG TABLET PO SCH (22:09)
[2020-07-20] MEDS: traZODone HCL 100 MG TAB PO SCH (22:10)
[2020-07-21 07:17] VITALS: RESP 18
[2020-07-21] MEDS: IBUPROFEN 600 MG TAB PO SCH ×3 (08:16→22:14)
[2020-07-21 08:21] VITALS: BP 114/62; PULSE 120
[2020-07-21] MEDS: oxyCODONE-APAP 5-325MG 1 EACH TAB PO SCH ×2 (08:21→18:47)
[2020-07-21] MEDS: NICOTINE 21MG/24HR PATCH TRANSDERM SCH (08:22)
[2020-07-21] MEDS: OLANZapine 5 MG TAB PO SCH ×3 (08:22→22:17)
[2020-07-21] MEDS: clonazePAM 1 MG TAB PO SCH ×2 (08:22→22:16)
--- NOTE | 2020-07-21 11:47 | P.PN ---
Progress Note - Text Progress Note Date: 07/21/20 Clinical Problems: Unspecified depressive disorder, rule out depressive disorder secondary to benzodiazepine and opiate use disorder, rule out major depressive disorder, benzodiazepine withdrawal, benzodiazepine use disorder severe, opiate use disorder, posttraumatic stress disorder (provisional), fibromyalgia Interim history: I reviewed the medical record, interviewed the patient and discuss his treatment and treatment plan during team meeting. She is a 59-year-old female admitted voluntarily to the psychiatric unit over the weekend with increasing agitation, emotional lability and suicidal statements. She has a history of anxiety and anxiety symptoms for which she was prescribed benzodiazepines at increasing doses. She talked about having been prescribed up to 8 mg of Xanax daily and clonazepam up to 8 mg daily. She was mismanaging her prescription, consuming higher doses than prescribed and sought additional prescriptions. She also talked about obtaining additional doses of Xanax and clonazepam from friends and family. In March 2018 her primary care provider referred her to a psychiatrist, Dr. Kelley, after refused to continue to prescribe her high-dose of clonazepam. She complained that Dr. Kelley would not prescribe more than 3 mg of clonazepam per day and he would not provide additional doses when she used her month supply before the next refill. She would always use her prescription at least 10 days before the scheduled refill. She complained of worsening anxiety agitation and restlessness when she did not obtain her prescription for clonazepam. She requested that we refer to a "another psychiatrist." The covering psychiatrist spoke to her about dependence and treatment with opiates and benzodiazepines. He also spoke with her about her chronic and high use of both drugs. He limited her clonazepam to 1 mg twice a day and began Zyprexa 5 mg 3 times a day. She reported a "modest" reduction in anxiety with the Zyprexa. During our interview she complained about her medical treatment in particular our unwillingness to prescribe doses of Percocet and clonazepam that she was accustomed. She complained that her pain specialist was prescribing her up to 30 mg Percocet today. She alleged that she is unable to control her anxiety without additional doses of clonazepam. I explained that I concur with the recommendations of the covering psychiatrist and would not give her further increases clonazepam. Mental status exam: She presented as a thin neatly groomed elderly woman who was pleasant on approach. She made eye contact and attended to the interview. She had no distinguishing features or prominent physical abilities. She isn't anxious facial expression. She was alert and oriented to person, place and time. She was restless but not agitated. Her speech was spontaneous with normal rate and rhythm. Her affect was anxious. She denied current suicidal ideation or wishes. She denied homicidal ideation. She expressed feelings of hopelessness and helplessness regarding her anxiety and treatment. She ruminated about her multiple medical problems and need for higher doses of benzodiazepines. She denied express ideas reference paranoid ideation or delusions. Her thinking was concrete but his associations were coherent and logical. She denied hallucinations and did not appear to be responding to internal stimuli. Assessment: I suspect that the agitation and suicidal statements are related to benzodiazepine and/or opiate withdrawal. Since his be on the unit she complains of anxiety but the place of subjective anxiety aren't disproportionate to her presentation. She is medication seeking and attempting to negotiate higher doses of clonazepam. Plan: Continue inpatient treatment in November develop an aftercare plan. Plan for discharge on 07/22/2020. Continue Klonopin 1 mg twice a day, melatonin 3 mg at bedtime, Zyprexa 5 mg 3 times a day and trazodone 100 mg at bedtime. dental laboratory worker to coordinate discharge and aftercare including referral for outpatient individual therapy. Provided with information about psychiatrist available community but schedule a follow-up appointment with Dr. Kelley. Encourage participation in therapeutic groups and activities. Evaluate clinical status response to treatment daily basis.
[2020-07-21] MEDS: methocarbamoL 500 MG TAB PO PRN (16:25)
[2020-07-21 17:33] VITALS: TEMP 98
[2020-07-21] MEDS: traZODone HCL 100 MG TAB PO SCH (22:16)
[2020-07-21] MEDS: MELATONIN 5 MG TABLET PO SCH (22:16)
[2020-07-22] MEDS: IBUPROFEN 600 MG TAB PO SCH (09:13)
[2020-07-22] MEDS: NICOTINE 21MG/24HR PATCH TRANSDERM SCH (09:13)
[2020-07-22] MEDS: oxyCODONE-APAP 5-325MG 1 EACH TAB PO SCH (09:13)
[2020-07-22] MEDS: clonazePAM 1 MG TAB PO SCH (09:13)
[2020-07-22] MEDS: OLANZapine 5 MG TAB PO SCH (09:13)
--- NOTE | 2020-07-22 12:16 | P.DS ---
Providers Date of admission: 07/18/20 21:10 Attending physician: Ryan Lew MD Consults: 07/18/20 21:34 Consult Physician Routine Consulting Provider: Ousmane Lock Jr Consult Reason/Comments: Medical Management Do you want consulting provider notified?: Yes, Notify in am Primary care physician: Ousmane Lock - Discharge Diagnosis(es) (1) Suicidal ideation Current Visit: Yes Status: Resolved Priority: Low (2) Sedative hypnotic withdrawal Current Visit: Yes Status: Acute Priority: Medium (3) Sedative, hypnotic or anxiolytic use disorder, severe, dependence Current Visit: Yes Status: Chronic Priority: High (4) Anxiety disorder, unspecified Current Visit: Yes Status: Acute (5) Back pain Current Visit: Yes Status: Chronic Priority: Medium Hospital Course: HISTORY: She is a 59-year-old female admitted to the psychiatric unit voluntarily with complaints of suicidal ideation, increasing anxiety, restlessness and emotional lability. She has a history of anxiety and anxiety symptoms for which she was prescribed benzodiazepines at increasing doses. She talked about having been prescribed up to 8 mg of Xanax daily and clonazepam up to 8 mg daily. She was mismanaging her prescription, consuming higher doses than prescribed and sought additional prescriptions. She also talked about obtaining additional doses of Xanax and clonazepam from friends and family. In March 2018 her primary care provider referred her to a psychiatrist, Dr. Kelley, after refused to continue to prescribe her high-dose of clonazepam. She complained that Dr. Kelley would not prescribe more than 3 mg of clonazepam per day and he would not provide additional doses when she used her month supply before the next refill. She would always use her prescription at least 10 days before the scheduled refill. She complained of worsening anxiety agitation and restlessness when she did not obtain her prescription for clonazepam. This admission was a result of having misused her benzodiazepine prescription and her outpatient providers unwilling to prescribe additional doses. I reviewed her MAPS and she has been consistently prescribed 90 tablets of clonazepam monthly. She another prescription due to prefilled this week. HOSPITAL COURSE: We admitted her to the psychiatric unit under the care of this tag writer. We provided a comprehensive biopsychosocial assessment. The wireless consultant plant propagator completed initial physical exam and medical history and diagnosed her with multiple somatic complaints and chronic low back pain. He made no specific recommendations for her medical management. We did not continue outpatient dose of your clonazepam or Percocet. After discussing her history of abuse and of her medications with her we recommended to decrease the clonazepam to 1 mg by mouth twice a day and suggested that she became to taper and discontinue her dose. We also prescribed Percocet 5-325 twice a day for the treatment of her pain. We treated her anxiety complaints with Zyprexa 5 mg 3 times a day and prescribed Desyrel 100 mg at bedtime for sleep. She reported a marked improvement in her anxiety and complete resolution of suicidal ideation when she arrived on the unit and received her first dose of clonazepam. She is here resistant to discontinuing on his p.m. or her opiate pain medicine. MENTAL STATUS ON DISCHARGE: At the time of discharge she presented as a thin almost cachetic appearing elderly woman who was pleasant on approach. She made eye contact and attended to interview. She was neatly dressed and groomed. She had a bright facial expression. She was alert and oriented to person, place and time. She showed no abnormality of psychomotor activity. Her speech was spont aneous with normal rate, rhythm and volume. Affect was bright, stable and appropriate. She denied suicidal ideation or wishes. She denied homicidal ideation. She denied feeling hopeless, helpless or worthless. She ruminated about her benzodiazepine and opiate prescriptions. She expressed a reference, paranoid thoughts or paranoid ideation. Her thinking was concrete but her associations were coherent, logical and goal directed. She denied hallucinations and did not appear to be responding to internal stimuli. DISPOSITION: Discharge home with follow-up by her outpatient psychiatrist. We provided prescriptions for both Zyprexa 5 mg 3 times a day and trazodone 100 mg at bedtime. We did not give her a prescription for a clonazepam or Percocet. She has a refill for clonazepam. Patient Condition at Discharge: Stable Plan - Discharge Summary New Discharge Prescriptions: New traZODone HCL [Desyrel] 100 mg PO HS #30 tab Nicotine 21Mg/24Hr Patch [Habitrol] 1 patch TRANSDERM DAILY patch clonazePAM [KlonoPIN] 1 mg PO BID tab OLANZapine [ZyPREXA] 5 mg PO TID #90 tab Continue Sertraline [Zoloft] 50 mg PO DAILY oxyCODONE-APAP 10-325MG [Percocet 10-325 mg] 1 tab PO TID PRN PRN Reason: Pain Mirtazapine 15 mg PO HS Melatonin 10 mg PO HS Discontinued clonazePAM [KlonoPIN] 1 mg PO TID methocarbamoL [Robaxin] 500 mg PO TID PRN PRN Reason: Muscle Pain Discharge Medication List Melatonin 10 mg PO HS 07/18/20 [History] Mirtazapine 15 mg PO HS 07/18/20 [History] Sertraline [Zoloft] 50 mg PO DAILY 07/18/20 [History] oxyCODONE-APAP 10-325MG [Percocet 10-325 mg] 1 tab PO TID PRN 07/18/20 [History] Nicotine 21Mg/24Hr Patch [Habitrol] 1 patch TRANSDERM DAILY patch 07/22/20 [Rx] OLANZapine [ZyPREXA] 5 mg PO TID #90 tab 07/22/20 [Rx] clonazePAM [KlonoPIN] 1 mg PO BID tab 07/22/20 [Rx] traZODone HCL [Desyrel] 100 mg PO HS #30 tab 07/22/20 [Rx] Follow up Appointment(s)/Referral(s): Dr Treasure [Other] - 07/23/20 3:00 pm Ousmane Lock Jr, [Primary Care Provider] - 1-2 days Activity/Diet/Wound Care/Special Instructions: Activity and diet as tolerated. Avoid the use of street drugs and alcohol. Take all medications as prescribed. When you are in need of refills on your medications please contact your medical provider and/or outpatient psychiatrist to have this done. Please go to scheduled outpatient appointment for aftercare treatment. If symptoms return or become worse, call the crisis line at and/or go to the nearest emergency room for evaluation. Discharge Disposition: HOME SELF-CARE
== END 2020-07-22 13:14 | disposition home or self-care (01) | DRG 897 ==
LOC: EC 13:30 → 3MHU 21:10
PROVIDERS: ADMIT Psychiatry & Neurology Psychiatry; ATTEND Psychiatry & Neurology Psychiatry
DX: F13.230 Sedative, hypnotic or anxiolytic dependence with withdrawal, uncomplicated (principal); R64 Cachexia; R45.851 Suicidal ideations; Z68.1 Body mass index [BMI] 19.9 or less, adult; F32.9 Major depressive disorder, single episode, unspecified; F11.13 Opioid abuse with withdrawal; G40.909 Epilepsy, unspecified, not intractable, without status epilepticus; J44.9 Chronic obstructive pulmonary disease, unspecified; M19.90 Unspecified osteoarthritis, unspecified site; M79.7 Fibromyalgia; F41.9 Anxiety disorder, unspecified; G43.909 Migraine, unspecified, not intractable, without status migrainosus; F12.10 Cannabis abuse, uncomplicated; G89.29 Other chronic pain; M99.09 Segmental and somatic dysfunction of abdomen and other regions; M54.5 Low back pain; F43.10 Post-traumatic stress disorder, unspecified; Z79.899 Other long term (current) drug therapy; Z88.5 Allergy status to narcotic agent; Z88.8 Allergy status to other drugs, medicaments and biological substances; Z62.810 Personal history of physical and sexual abuse in childhood; Z98.51 Tubal ligation status; Z98.890 Other specified postprocedural states; Z59.9 Problem related to housing and economic circumstances, unspecified; Z80.8 Family history of malignant neoplasm of other organs or systems; Z80.49 Family history of malignant neoplasm of other genital organs; Z91.410 Personal history of adult physical and sexual abuse
CPT/HCPCS: 80053; 80061; 82075; 83036; 84443; 85025; 96372; 99285

== ENCOUNTER 2024-12-11 09:51 | Day surgery (SDC) | payer MEDICARE ==
[2024-08-24 10:56] VITALS: BMI 19.1
[~2024-12-11 09:51] MED LIST: LIDOCAINE 1% (10MG/ML) FOR IV START INTRADERMA PRN
[2024-12-11 10:25] VITALS: TEMP 98.3
[2024-12-11] MEDS: LACTATED RINGERS 1,000 ML IV SCH (10:34)
[2024-12-11] MEDS: IV FLUID CONTINUATION 1,000 ML IV ONE (10:35)
[2024-12-11] MEDS ORDERED: PROPOFOL 10 MG/ML 20 ML VIAL IV ONE (10:55)
--- NOTE | 2024-12-11 11:01 | P.GSHP ---
History of Present Illness H&P Date: 12/11/24 Chief Complaint: Colon cancer screening 64-year-old female here for colonoscopy. Last colonoscopy over 10 years ago. No bowel complaints. Last study was normal. No family history of colon cancer. Past Medical History Past Medical History: Asthma, COPD, Fibromyalgia, GERD/Reflux, Osteoarthritis (OA), Seizure Disorder Additional Past Medical History / Comment(s): MIGRAINES, last seizure 2008-pt states from too many meds at the time. pt states she does not have epilepsy. DDD History of Any Multi-Drug Resistant Organisms: None Reported Past Surgical History: Tubal Ligation Additional Past Surgical History / Comment(s): Ectopic , D&C, PAIN CLINIC PROCEDURES- abnormal pap 2023- came back neg , colonoscopy Past Anesthesia/Blood Transfusion Reactions: No Reported Reaction, Postoperative Nausea & Vomiting (PONV) Additional Past Anesthesia/Blood Transfusion Reaction / Comment(s): no blood transfusion Smoking Status: Current every day smoker - Past Family History Brother(s) Family Medical History: Cancer Additional Family Medical History / Comment(s): Brother throat CA x2 Mother Family Medical History: Cancer Additional Family Medical History / Comment(s): Uterine CA Father Family Medical History: Cancer Additional Family Medical History / Comment(s): MELANOMA Medications and Allergies Home Medications Medication Instructions Recorded Confirmed Type Melatonin [Melatonin Tr] 10 mg PO HS 07/18/20 12/11/24 History Mirtazapine 45 mg PO HS 07/18/20 12/11/24 History Sertraline [Zoloft] 100 mg PO DAILY 07/18/20 12/11/24 History oxyCODONE-APAP 10-325MG [Percocet 1 tab PO TID PRN 07/18/20 12/11/24 History 10-325 mg] Nicotine 21Mg/24Hr Patch [Habitrol] 1 patch TRANSDERM DAILY patch 07/22/20 12/11/24 Rx Albuterol Inhaler [Ventolin Hfa 1 - 2 puff INHALATION Q6H PRN 08/24/24 12/11/24 History Inhaler] Albuterol Nebulized (Conc) 2.5 mg INHALATION Q6H PRN 08/24/24 12/11/24 History [Ventolin Nebulized (Conc)] Fluticasone/Umeclidin/Vilanter 1 puff PO DAILY 08/24/24 12/11/24 History [Trelegy Ellipta 200-62.5-25] clonazePAM [KlonoPIN] 1 mg PO TID 08/24/24 12/11/24 [address] [facility] Xtra Medrano Relief 1 tab PO DIRECTED PRN 12/10/24 12/11/24 History DULoxetine HCL [Cymbalta] 40 mg PO DAILY 12/10/24 12/11/24 History Otc Acid Controller 1 tab PO DIRECTED PRN 12/10/24 12/11/24 History Allergies Allergy/AdvReac Type Severity Reaction Status Date / Time codeine Allergy Nausea & Verified 12/11/24 10:19 Vomiting gabapentin [From Neurontin] Allergy STUTTERS, Verified 12/11/24 10:19 SPEECH DIFFICULTY. hydrocodone bitartrate Allergy Nausea & Verified 12/11/24 10:19 [From Vicodin] Vomiting tramadol HCl [From Ultram] Allergy Nausea & Verified 12/11/24 10:19 Vomiting venlafaxine [From Effexor] Allergy Confusion Verified 12/11/24 10:19 Surgical - Exam Vital Signs Temp Pulse Resp BP Pulse Ox 98.3 F 94 18 132/79 98 12/11/24 10:24 12/11/24 10:24 12/11/24 10:24 12/11/24 10:24 12/11/24 10:24 Physical exam: General: Well-developed, well-nourished HEENT: Normocephalic, sclerae nonicteric Abdomen: Nontender, nondistended Extremities: No edema Neuro: Alert and oriented Assessment and Plan (1) Colon cancer screening Narrative/Plan: Will proceed with colonoscopy at this time. Current Visit: Yes Status: Acute Code(s): Z12.11 - ENCOUNTER FOR SCREENING FOR MALIGNANT NEOPLASM OF COLON SNOMED Code(s): 253798474
--- NOTE | 2024-12-11 11:23 | P.PCN ---
Date of Procedure: 12/11/24 Procedure(s) Performed: PREOPERATIVE DIAGNOSIS: Colon cancer screening POSTOPERATIVE DIAGNOSIS: Small rectal polyp PROCEDURE: Colonoscopy with snare polypectomy ANESTHESIA: MAC SURGEON: Lan Quinteros M.D. SPECIMENS: Polyp ENDOSCOPIC PROCEDURE: The patient was placed on the endoscopy table in the left decubitus position. The Olympus colonoscope was inserted into the anus and passed under direct visualization to the base of the cecum. The appendiceal orifice was visualized. From that point the scope was slowly withdrawn inspecting all surfaces carefully. There were no neoplastic inflammatory or polypoid lesions throughout the cecum, ascending, transverse, descending, and sigmoid colon. In the rectum a very small polyp that appeared hyperplastic was removed using the snare without cautery technique. The remainder of the rectum was normal. There was no visible diverticulosis. Digital rectal examination was normal. The patient was taken to the recovery room in stable condition per anesthesia guidelines. RECOMMENDATIONS: Await biopsy results. Will contact patient with timing for next colonoscopy.
[2024-12-11 11:29] VITALS: BP 91/56; PULSE 85; RESP 16
== END 2024-12-11 12:10 | disposition home or self-care (01) ==
LOC: ORWHC2ENDO 09:51
PROVIDERS: ATTEND Surgery
DX: Z12.11 Encounter for screening for malignant neoplasm of colon (principal); K62.1 Rectal polyp; J44.89 Other specified chronic obstructive pulmonary disease; M19.90 Unspecified osteoarthritis, unspecified site; G40.909 Epilepsy, unspecified, not intractable, without status epilepticus; M79.7 Fibromyalgia; F41.9 Anxiety disorder, unspecified; F32.A Depression, unspecified; K21.9 Gastro-esophageal reflux disease without esophagitis; F17.210 Nicotine dependence, cigarettes, uncomplicated; Z88.5 Allergy status to narcotic agent; Z88.8 Allergy status to other drugs, medicaments and biological substances; Z98.51 Tubal ligation status; Z79.51 Long term (current) use of inhaled steroids; Z79.899 Other long term (current) drug therapy; Z88.1 Allergy status to other antibiotic agents
CPT/HCPCS: 45385; J2704; 88305